=== PATIENT | male | born 1995 | race Caucasian/White ===

== ENCOUNTER 2017-11-29 15:52 | Emergency (ER) | payer OTHER, SELFPAY ==
[2017-11-29 15:52] VITALS: BP 165/96; PULSE 94; RESP 18; TEMP 37.2; O2SAT 98; BMI 38.0
--- NOTE | 2017-11-29 16:16 | EKG12_ITS ---
Test Reason : CHEST PAIN Blood Pressure : / mmHG Vent. Rate : 080 BPM Atrial Rate : 080 BPM P-R Int : 154 ms QRS Dur : 088 ms QT Int : 352 ms P-R-T Axes : 035 019 028 degrees QTc Int : 405 ms Normal sinus rhythm Normal ECG Confirmed by AKI REDD, JOSE ([id number]), clinical editor NIEVES BONNER ([id number]) on 12/01/2017 2:19:36 PM Referred By: VELVET/SELINA/ANANYA Confirmed By:JOSE PRABHAKAR MD
--- NOTE | 2017-11-29 16:16 | RAD_ITS ---
STUDY: X-RAY CHEST REASON FOR EXAM: Male, 22 years old. Chest pain. TECHNIQUE: Single frontal view of the chest. COMPARISON: June 28, 2012 FINDINGS: The lungs are clear and expanded. There is no demonstrated pleural abnormality. Normal size heart. Normal mediastinum and kamryn. Normal visualized pulmonary arteries. Normal visualized aortic arch and descending thoracic aorta. Normal visualized thoracic spine. Normal visualized ribs, clavicles, and shoulders. There is no demonstrated abnormality of the visualized soft tissue structures of the upper abdomen. RAD/Chest 1 View (Portable) IMPRESSION: No acute cardiopulmonary process. Electronically Signed: Barbara Pina MD at 16:44 EDT Tel , Service support ,
[2017-11-29 16:17] VITALS: O2SAT 96
--- NOTE | 2017-11-29 16:17 | ED.VISSUMM ---
- ER Visit Summary Date of Service: 11/29/17 Chief Complaint: Chest pain History of Present Illness: The patient is a 22 M with chest pain and breathing problems for the past week. Patient has had breathing problems before and has a history of asthma, but the chest pain is new. The pain is in his left chest and radiates into his left arm. Worse in the morning when he wakes up. He has no change with exertion. No other associated symptoms. No history of DVT or PE. No family history. No recent immobilization, surgery, or travel. No history of aortic disease. He does snore and is concerned he has obstructive sleep apnea. He has not been tested for sleep apnea. No known history of diabetes, hypertension, or high cholesterol. Non-smoker. Physical Examination: Afebrile. Blood pressure 165/96. Otherwise vitals unremarkable. Alert and oriented. No acute distress. Skin appears normal in color without diaphoresis or pallor. Heart regular rate and rhythm. Lungs clear in all resendiz. Abdomen soft and nontender. Calf soft and supple. Pulses strong and equal bilaterally. Test Results: EKG shows sinus rhythm at a rate of 80. No sign of acute ischemia or infarction pattern. Laboratory studies and chest x-ray are pending. Emergency Department Course and Treatment: Patient was placed on a monitor. He is PERC negative. Troponin is pending, but his heart score would be a maximum of 2. No concern for aortic disease. Will check basic labs and a chest x-ray as well. He declined pain medicine. Workup was unremarkable. Patient is overall low risk. He would like outpatient follow-up. Declined delta. Follow-up with primary care for recheck, further testing, and maintenance. Treatment Plan: As above Disposition: Discharged Impression: 1. Chest pain unclear etiology This note was generated with [employer] software. It may contain incorrect words, spelling, and punctuation that were not noted in review of the chart prior to signing ED Disposition - Plan for ED Patient: Chief Complaint: Chest Pain Referrals: Mohsen Miramontes MD [Primary Care Provider] -
--- NOTE | 2017-11-29 16:20 | ED.DCSUM_ITS ---
- ER Visit Summary Date of Service: 11/29/17 Chief Complaint: Chest pain History of Present Illness: The patient is a 22 M with chest pain and breathing problems for the past week. Patient has had breathing problems before and has a history of asthma, but the chest pain is new. The pain is in his left chest and radiates into his left arm. Worse in the morning when he wakes up. He has no change with exertion. No other associated symptoms. No history of DVT or PE. No family history. No recent immobilization, surgery, or travel. No history of aortic disease. He does snore and is concerned he has obstructive sleep apnea. He has not been tested for sleep apnea. No known history of diabetes, hypertension, or high cholesterol. Non-smoker. Physical Examination: Afebrile. Blood pressure 165/96. Otherwise vitals unremarkable. Alert and oriented. No acute distress. Skin appears normal in color without diaphoresis or pallor. Heart regular rate and rhythm. Lungs clear in all resendiz. Abdomen soft and nontender. Calf soft and supple. Pulses strong and equal bilaterally. Test Results: EKG shows sinus rhythm at a rate of 80. No sign of acute ischemia or infarction pattern. Laboratory studies and chest x-ray are pending. Emergency Department Course and Treatment: Patient was placed on a monitor. He is PERC negative. Troponin is pending, but his heart score would be a maximum of 2. No concern for aortic disease. Will check basic labs and a chest x-ray as well. He declined pain medicine. Workup was unremarkable. Patient is overall low risk. He would like outpatient follow-up. Declined delta. Follow-up with primary care for recheck , further testing, and maintenance. Treatment Plan: As above Disposition: Discharged Impression: 1. Chest pain unclear etiology This note was generated with [employer] formerly [employer] software. It may contain incorrect words, spelling, and punctuation that were not noted in review of the chart prior to signing ED Disposition - Plan for ED Patient: Chief Complaint: Chest Pain Referrals: Mohsen Miramontes MD [Primary Care Provider] -
[2017-11-29 16:48] LABS: Absolute Lymphocyte Count 2.69 X10^3/ul (0.83-4.51); Absolute Neutrophil Count 4.8 X10^3/uL (2.0-7.7); Basophil# 0.02 X10^3/uL; Basophil% 0.2 % (0-1); Eosinophil# 0.11 X10^3/uL; Eosinophils% 1.3 % (0-5); Hematocrit 42.6 % (40-54); Hemoglobin 14.7 g/dl (13.0-16.5); Lymphocyte # 2.69 X10^3/ul (4.0); Lymphocyte % 32.2 % (19-41); Mean Corp Hgb Conc 34.5 g/gl (32-36); Mean Corpuscular Hgb 30.3 pg (27.0-32.0); Mean Corpuscular Volume 87.8 fL (80-94); Mean Platelet Vol. 8.9 fl (6.2-12.0); Monocyte# 0.73 X10^3/uL; Monocyte% 8.7 % (0-10); Neutrophil # 4.79 X10^3/uL (2.7-7.7); Neutrophil % 57.4 % (47-70); Platelet Count 286 K/mm3 (150-450); RBC Distribution Width CV 13.2 % (11.6-14.6); Red Blood Count 4.85 M/mm3 (4.6-6.2); White Blood Count 8.4 K/mm3 (4.4-11.0)
[2017-11-29 16:50] LABS: POSITIVE COUNT NO; POSITIVE DIFFERENTIAL NO; POSITIVE MORPHOLOGY NO
[2017-11-29 16:52] VITALS: PULSE 92; RESP 17; O2SAT 97
[2017-11-29 17:00] VITALS: BP 121/60; PULSE 71; RESP 16; O2SAT 98
[2017-11-29 17:01] LABS: Anion Gap 8 (5-15); BUN 15 mg/dL (7-18); BUN/Creat Ratio 15.6 RATIO (10-20); Calcium,Total 8.8 mg/dL (8.5-10.1); Chloride 104 mmol/L (98-107); Creatinine, Serum 0.96 mg/dL (0.70-1.30); EST Glomerular Filtration Rate 104 mL/min (>60); Est Glom Filt Rate - Afr Amer 126 mL/min (>60); Glucose 99 mg/dL (74-106); Potassium 3.7 mmol/L (3.5-5.1); Sodium Level 139 mmol/L (136-145)
--- NOTE | 2017-11-29 17:43 | ED.DEP ---
ED Disposition - Plan for ED Patient: Chief Complaint: Chest Pain Instructions: ED Chest Pain Atypical Unkn Cause Referrals: Mohsen Miramontes MD [Primary Care Provider] -
[2017-11-29 18:00] VITALS: BP 123/69; PULSE 85; RESP 20; O2SAT 97
--- NOTE | 2017-11-29 18:17 | ED.RN ---
REVIEWED D/C INSTRUCTIONS, FOLLOW UP CARE, AND S/S THAT WOULD WARRANT A RETURN TO THE ED WITH PT. PT VERBALIZED AN UNDERSTANDING AND DENIES FURTHER QUESTIONS FOR THIS RN. PT SKIN P/W/D, RESP EVEN AND UNLABORED, PT A&O X 3, NO DISTRESS NOTED. PT AMBULATED OUT OF ED, GAIT STEADY.
== END 2017-11-29 18:19 | disposition home or self-care (01) ==
PROVIDERS: Emergency Provider Emergency Medicine; Family Provider Family Medicine; PCP Family Medicine
DX: R07.9 Chest pain, unspecified (principal); J45.909 Unspecified asthma, uncomplicated
CPT/HCPCS: 71045; 80048; 84484; 85025; 93005; 99284

== ENCOUNTER 2018-04-08 12:22 | Emergency (ER) | payer OTHER, SELFPAY ==
[2018-04-08 12:23] VITALS: BP 138/70; PULSE 93; RESP 16; TEMP 36.4; O2SAT 96; BMI 41.5
--- NOTE | 2018-04-08 12:41 | ED.RN ---
RT SIDED ABD PAIN.
--- NOTE | 2018-04-08 12:57 | CT_ITS ---
STUDY: CT ABDOMEN AND PELVIS WITH CONTRAST REASON FOR EXAM: Male, 22 years old. Right testicular pain. RADIATION DOSAGE (If Supplied By Facility): CTDIvol = ( 19.44 ) mGy, DLP = ( 1730.55 ) mGycm TECHNIQUE: Transaxial images were obtained from the dome of the diaphragm to the symphysis pubis without oral contrast. 100 ml of Isovue 300 contrast was administered. Sagittal and coronal images were reconstructed. Individualized dose optimization techniques were used for this CT. COMPARISON: Comparison is made with prior examination June 22, 2013. FINDINGS: The visualized lung bases are unremarkable. The visualized portions of the heart are within normal limits. There is decreased attenuation of the liver consistent with steatosis. Normal gallbladder and extrahepatic biliary system. Normal spleen. Normal pancreas. Normal bilateral adrenal glands. Normal right kidney. Normal left kidney. Normal visualized stomach. Normal small intestine. There are scattered colonic diverticula consistent with diverticulosis. The appendix is visualized and appears normal. Normal abdominal aorta. Normal inferior vena cava. There is borderline retroperitoneal lymphadenopathy with enlarged nodes no greater than 10mm in the short axis diameter. Normal urinary bladder. There is a small umbilical hernia containing fat. Small right inguinal hernia containing fat. Normal osseous structures. CT/Abdomen/Pelvis W IV Cont ONLY IMPRESSION: Fatty infiltration of the liver. Scattered sigmoid diverticula. Small right inguinal hernia containing fat. Electronically Signed: Yong Jeffers MD at 14:26 EST , Service support ,
--- NOTE | 2018-04-08 13:02 | ED.VISSUMM ---
- ER Visit Summary Date of Service: 04/08/18 Chief Complaint: Right-sided abdominal and groin pain History of Present Illness: The patient is a 22 M past medical history of asthma and a prior femur fracture. Patient states yesterday he awoke around 5:30 in the morning yesterday with right-sided abdominal pain. At times it does radiate to his right groin. No fever. Denies any nausea, vomiting or diarrhea. He has had some mild constipation but had a small bowel movement today. No melena. No history of kidney stones. No trauma. No hematuria or dysuria. No weight change. No prior abdominal surgery. Physical Examination: Vital signs are stable and afebrile. He is in no acute distress. H EENT exam unremarkable. Neck nontender no lymphadenopathy. Lungs clear to auscultation bilaterally. Heart regular rhythm no murmur. Abdomen soft. Nondistended. Normal bowel sounds. No hernias or masses. No signs of obstruction. He does have mild right upper and lower quadrant tenderness. External exam normal bilateral testicles. No torsion. No redness or warmth. No obvious hernia or masses. Circumcised. Extremities moves all 4. Neurovascular intact. Back nontender. Neurologically is awake alert with no focal motor deficits. Test Results: CBC normal. White count 8. Hemoglobin 14. Electrolytes normal normal creatinine gap. Liver enzymes unremarkable alk phos elevated at 126 ALT is 73. Lipase normal. Urinalysis unremarkable. CT abdomen pelvis with IV contrast only there is a small right inguinal hernia and also a small umbilical hernia. No obstruction. Clinically the patient is not incarcerated or strangulated. Emergency Department Course and Treatment: Treated with IV Toradol for pain. Treatment Plan: Repeat exam patient is doing well at 1453. Abdomen is benign. No signs of obstruction. I went over all tests with him including the CAT scan results. He is comfortable being discharged and following up as an outpatient. Disposition: Discharge Impression: Acute right-sided abdominal pain secondary to small right inguinal hernia Also incidental finding of a small umbilical hernia. This note was generated with [employer] dictation software. It may contain incorrect words, spelling, and punctuation that were not noted in review of the chart prior to signing ED Disposition - Plan for ED Patient: Chief Complaint: Male Pain/Injury Referrals: Mohsen Miramontes MD [Primary Care Provider] -
[2018-04-08 13:21] LABS: Absolute Lymphocyte Count 2.46 X10^3/ul (0.83-4.51); Absolute Neutrophil Count 5.5 X10^3/uL (2.0-7.7); Basophil# 0.02 X10^3/uL; Basophil% 0.2 % (0-1); Eosinophil# 0.08 X10^3/uL; Eosinophils% 0.9 % (0-5); Hemoglobin 14.9 g/dl (13.0-16.5); Lymphocyte # 2.46 X10^3/ul (4.0); Lymphocyte % 28.3 % (19-41); Mean Corp Hgb Conc 33.1 g/gl (32-36); Mean Corpuscular Hgb 29.4 pg (27.0-32.0); Mean Corpuscular Volume 88.8 fL (80-94); Mean Platelet Vol. 8.8 fl (6.2-12.0); Monocyte# 0.64 X10^3/uL; Monocyte% 7.4 % (0-10); Neutrophil # 5.47 X10^3/uL (2.7-7.7); Platelet Count 276 K/mm3 (150-450); RBC Distribution Width CV 13.2 % (11.6-14.6); RBC Distribution Width SD 42.6 fl (35.1-43.9); Red Blood Count 5.07 M/mm3 (4.6-6.2); White Blood Count 8.7 K/mm3 (4.4-11.0)
[2018-04-08 13:22] LABS: POSITIVE COUNT NO; POSITIVE DIFFERENTIAL NO; POSITIVE MORPHOLOGY NO
[2018-04-08] MEDS: 0.9% Normal Saline 1,000 ML 100 ML IV (13:23)
[2018-04-08] MEDS: Ketorolac 30 MG/ML Syringe IV (13:24)
[2018-04-08 13:25] LABS: Bacteria 0 SEEN /hpf (None Seen); Mucous, Urine 0 SEEN /hpf (<or=2+); Red Blood Cells-Urine 0 SEEN /hpf (0-5); White Blood Cells 0 SEEN /hpf (0-5)
[2018-04-08 13:26] LABS: Color, Urine Yellow (Yellow); Glucose, Dipstick Normal (Normal); Ketone-Dipstick Negative (Negative); Leukocyte Esterase-Dipstick Negative /ul (Negative); Nitrite-Dipstick Negative (Negative); Occult Blood-Urine Negative /ul (Negative); Protein-Dipstick Negative (Negative); Urine Bilirubin Dipstick Negative (Negative); Urine Clarity Sl. Cloudy (Clear); Urine Urobilinogen Normal (Normal)
[2018-04-08 13:32] LABS: Squamous Epithelial Cells - UA 0-5 SEEN /hpf (0-5)
[2018-04-08 13:38] LABS: AST(SGOT) 29 U/L (15-37); Alanine Aminotransfer ALT/SGPT 73 U/L (16-61); Albumin, Serum 3.8 g/dL (3.2-5.0); Alkaline Phosphatase 126 U/L (45-117); Anion Gap 10 (5-15); BUN 15 mg/dL (7-18); BUN/Creat Ratio 16.6 RATIO (10-20); Bilirubin, Direct 0.11 mg/dL (0.00-0.30); Chloride 105 mmol/L (98-107); EST Glomerular Filtration Rate 112 mL/min (>60); Est Glom Filt Rate - Afr Amer 135 mL/min (>60); Estimated Creatinine Clearance 142.51 ml/min; Globulin 4.4 g/dL (2.2-4.2); Glucose 84 mg/dL (74-106); Lipase 100 U/L (73-393); Potassium 3.9 mmol/L (3.5-5.1); Protein, Total 8.2 g/dL (6.4-8.2); Sodium Level 141 mmol/L (136-145)
[2018-04-08 14:23] VITALS: BP 158/96; PULSE 64; RESP 18; O2SAT 99
--- NOTE | 2018-04-08 15:03 | DCINST.ED_ITS ---
ED Disposition - Plan for ED Patient: Disposition: Home or Assisted Living Chief Complaint: Male Pain/Injury Instructions: ED Hernia Inguinal Referrals: Heidy Jimenez MD [STAFF PHYSICIAN] - 1-2 Weeks Additional Instructions: Tylenol and/or Motrin for pain. Call and follow-up with Dr. Heidy Jimenez or Dr. Padilla Shah of the [facility] for evaluation and possible repair of your right groin hernia and they also saw a small bellybutton hernia on the CAT scan.
[2018-04-08 15:14] VITALS: BP 121/74; PULSE 71; RESP 16; O2SAT 98
== END 2018-04-08 15:15 | disposition home or self-care (01) ==
PROVIDERS: Emergency Provider Emergency Medicine; Family Provider Family Medicine; PCP Family Medicine
DX: K40.90 Unilateral inguinal hernia, without obstruction or gangrene, not specified as recurrent (principal); K42.9 Umbilical hernia without obstruction or gangrene; K59.00 Constipation, unspecified; J45.909 Unspecified asthma, uncomplicated
CPT/HCPCS: 74177; 80048; 80076; 81001; 83690; 85025; 96374; 99283; Q9967; A4216

== ENCOUNTER 2019-04-11 05:35 | Emergency (ER) | payer OTHER, SELFPAY ==
[2018-12-12 10:04] VITALS: BMI 40.6
[2019-04-11 05:36] VITALS: BP 160/92; PULSE 85; RESP 18; TEMP 36.6; O2SAT 97; BMI 40.6
--- NOTE | 2019-04-11 05:42 | RAD_ITS ---
STUDY: X-RAY - LEFT HAND REASON FOR EXAM: Male, 23 years old. SMASHED LT HAND AT WORK -- MARKINGS ON SKIN POSTERIOR LT HAND AREA OF DISTAL 2ND-3RD METATARSALS TECHNIQUE: 4 view(s) of the hand. COMPARISON: None. FINDINGS: Normal radiocarpal articulation. Normal distal radioulnar joint. Normal visualized carpal bones. Normal carpal articulations Normal carpometacarpal articulation of the thumb. Normal second through fifth carpometacarpal joints. Normal metacarpi. Normal metacarpophalangeal joint of the thumb. Normal interphalangeal joint of the thumb. Normal proximal and distal phalanges of the thumb. Normal metacarpophalangeal joints of the second through fifth fingers. Normal proximal and distal interphalangeal joints of the second through fifth fingers. Normal phalanges of the second through fifth fingers. Mild dorsal metacarpal soft tissue prominence. RAD/Hand Min 3 Views IMPRESSION: There is no acute displaced fracture or dislocation. There is soft tissue swelling. Electronically Signed: Sylvia Brooks MD at 6:21 EST , Service support ,
--- NOTE | 2019-04-11 05:43 | ED.VIS.GEN ---
History of Present Illness Chief Complaint: Upper Extremity Injury Detail of Chief Complaint: Crush injury left hand Informant: Patient Onset: Today Current Severity: Mild Maximum Severity: Moderate Narrative: Patient presents after getting his hand caught between 2 pieces of equipment at work. He was wearing gloves at the time. He states he was able to free his hand rather quickly. He had a purple area in the palm of his hand and some abrasions over the back of his hand. He states he initially was not able to make a full fist but after using an ice pack it does seem to be improving. He is right-hand dominant. He denies paresthesias. - Past Medical History (1) Asthma Status: Chronic Past Medical History - Allergies and Home Meds Allergies/Adverse Reactions: Allergies montelukast sodium [From Singulair] Allergy (Verified 04/11/19 05:39) Shortness of breath Primary Care Physician: Mohsen Miramontes MD [Primary Care Provider] - Prior records reviewed: Yes Lives: Spouse/ Significant Other Smoking Status: Never smoker Review of Systems General: Denies: Chills, Fever Eyes: Denies: Visual changes - bilaterally ENT: Denies: Bilateral ear pain Cardiovascular: Denies: Chest pain Respiratory: Denies: Dyspnea Gastrointestinal: Denies: Abdominal pain Musculoskeletal: Reports: Arthralgias, Extremity Pain Skin: Reports: Abrasions Neurological: Denies: Weakness, Parasthesia Hematologic: Denies: Easy bruising Allergy: Denies: Uticaria Physical Exam Vital Signs/Narrative: Vital Signs Temp Pulse Resp BP Pulse Ox 04/11/19 05:36 97.9 F 85 18 160/92 H 97 Inital Vital Signs reviewed: Yes General: Well nourished, Well developed Head: Normocephalic ENT: Moist mucous membranes Neck: Supple Cardiovascular: Regular rate, Regular rhythm Respiratory: No distress, CTA bilaterally Abdomen: Soft, Nontender Extremities: - - Mild erythema over both the palm and back of the left hand. He is able to make a tight fist. There is no focal bony tenderness. No significant edema is noted. Neurological: Alert, Oriented x3 Psychological: Normal affect Diagnostic/Tx/Re-eval Left hand x-ray read by myself reveals no evidence of acute bony injury. - Medical Decision Making Patient is given ibuprofen for pain. He clinically has no sign of compartment syndrome. He is able to make a tight fist. He has good cap refill distally. Gauze pad is applied to both the palm the back of hand and then wrapped with Eric wrap. He is given work restrictions for today. He will follow-up with [facility] ED Disposition - Plan for ED Patient: Disposition: Home or Assisted Living Diagnosis: Crush injury of hand Instructions: CRUSH INJURY, Hand/Finger [facility]errals: [facility] PHYSIC[facility]ANS] - As soon as possible
[2019-04-11] MEDS: Ibuprofen 600 MG Tablet PO (05:51)
[2019-04-11 06:05] VITALS: BP 135/76; PULSE 85; RESP 17; O2SAT 99
== END 2019-04-11 06:13 | disposition home or self-care (01) ==
PROVIDERS: Emergency Provider Emergency Medicine; PCP Family Medicine
DX: S67.22XA Crushing injury of left hand, initial encounter (principal); W31.9XXA Contact with unspecified machinery, initial encounter; Y93.9 Activity, unspecified; Y92.9 Unspecified place or not applicable; Y99.0 Civilian activity done for income or pay
CPT/HCPCS: 73130; 99283

== ENCOUNTER 2019-10-12 08:21 | Emergency (ER) | payer OTHER, SELFPAY ==
[2019-10-12 08:24] VITALS: BP 185/87; PULSE 72; RESP 17; TEMP 37.3; O2SAT 99; BMI 48.2
[2019-10-12 08:31] VITALS: PULSE 83; RESP 20; O2SAT 97
--- NOTE | 2019-10-12 08:35 | EKG12_ITS ---
Test Reason : CP Blood Pressure : / mmHG Vent. Rate : 075 BPM Atrial Rate : 075 BPM P-R Int : 154 ms QRS Dur : 090 ms QT Int : 380 ms P-R-T Axes : 029 019 036 degrees QTc Int : 424 ms Normal sinus rhythm Normal ECG Confirmed by MARINA REDD, NIRAJ ([id number]), scientific publications editor LOUANN CISNEROS ([id number]) on 10/17/2019 8:51:49 AM Referred By: ROSY Confirmed By:NIRAJ GRAY MD
--- NOTE | 2019-10-12 08:36 | ED.DCSUM_ITS ---
History of Present Illness Chief Complaint: Headache Informant: Patient Narrative: Patient is a 24-year-old male with a past medical history of asthma who presents to the emergency department for an episode of unresponsiveness. Patient states he felt like he had a sudden onset frontal headache that is a 7 out of 10. Is currently down to 2 out of 10. He remembers the entire event but does not remember talking to people. Does not seem like the patient never lost complete consciousness. He had some left-sided sharp discomfort over his chest wall. He does have some minor residual 2 out of 10 pain now. Describes it as somebody was poking him in the chest. He has never had this happen before. He has very mild shortness of breath but relates it to wearing a mask. He denies any recent illnesses including any cough, cold, congestion. No fevers or chills. He denies any nausea/vomiting or abdominal pain. No change in bowel habits. No urinary symptoms. He has had leg swelling bilaterally over the past month. He tried to get into his PCP was not able to get in. He denies smoking, drinking or drug use. Denies any vision changes at this time. Denies any issues with speech. No weakness or loss of sensation in extremities. Past Medical History - Allergies and Home Meds Allergies/Adverse Reactions: Allergies montelukast sodium [From Singulair] Allergy (Verified 10/12/19 08:24) Shortness of breath Primary Care Physician: Mohsen Miramontes MD [Primary Care Provider] - 2 Days Prior records reviewed: Yes Past Medical History: - - Asthma Smoking Status: Never smoker Review of Systems All systems negative except as indicated General: Denies: Chills, Fever, Sweats Eyes: Denies: Visual changes - bilaterally, Diplopia ENT: Denies: Rhinorrhea, Sore throat Cardiovascular: Reports: Chest pain. Denies: Palpitations Respiratory: Reports: Dyspnea. Denies: Cough, Dyspnea on exertion Gastrointestinal: Denies: Abdominal pain, Nausea, Vomiting, Diarrhea, Melena, Hematochezia Genitourinary: Denies: Dysuria, Hematuria, Frequency Musculoskeletal: Denies: Back pain, Extremity Pain Skin: Denies: Rash, Wounds Neurological: Reports: Headache. Denies: Weakness, Numbness Physical Exam Vital Signs/Narrative: Vital Signs Temp Pulse Resp BP Pulse Ox 10/12/19 08:31 83 20 H 97 10/12/19 08:24 99.1 F 72 17 185/87 H 99 Inital Vital Signs reviewed: Yes General: Well nourished, Well developed, No Acute Distress Head: Normocephalic, Atraumatic Eyes: Perrl, EOMI ENT: Moist mucous membranes, No rhinorrhea Neck: Supple, Nontender Cardiovascular: Regular rate, Regular rhythm, No murmurs Respiratory: No distress, CTA bilaterally, Chest nontender Abdomen: Soft, Nontender, Nondistended, Normal bowel sounds Back: Nontender, Normal Inspection Extremities: Nontender, No edema, Edema - Bilateral lower extremity swelling, 1+ pitting. Skin: Normal color, No rash Neurological: Alert, Oriented x3, Cranial nerves II-XII grossly intact, Normal Strength, Normal Sensation Psychological: Normal affect, Normal Mood Diagnostic/Tx/Re-eval - Medical Decision Making Patient presents to the emergency department for an episode of nonresponsiveness but never lost consciousness. He did have chest pain as well as a headache but both are starting to resolve at this point. Upon arrival to the emergency department patient is starting to feel better but still feels like he is in a fog. His vital signs showed him to be hypertensive but otherwise normal. Physical exam he does have bilateral lower extremity swelling which he states is relatively new. Will check basic lab work along with EKG and chest x-ray. Lab work did not reveal any significant acute abnormality. Troponin within normal limits. D-dimer within normal limits. Chest x-ray did not show any marisela dence of consolidation. ET scan of the head did not show any acute intracranial abnormality. Patient is resting comfortably and fell asleep. Upon waking he is feeling better at this time. Patient states he works in a very hot environment and might of overheated. He is requesting a work excuse for the rest of the day and will be provided one. At this time will discharge home in stable condition. He is to follow-up with his PCP about his bilateral leg swelling. No concern for DVT/PE given the fact he has not been hypoxic, tachycardic and is bilateral. Warning signs and symptoms for which to return to the emerge department reviewed. He understands and is agreeable with this plan. ED Disposition - Plan for ED Patient: Disposition: Home or Assisted Living Diagnosis: Chest pain, Headache, Episode of altered consciousness Instructions: ED Chest Pain Atypical Unkn Cause, ED Headache Unspecified Referrals: Mohsen Miramontes MD [Primary Care Provider] - 2 Days
[2019-10-12 08:58] LABS: Absolute Lymphocyte Count 2.22 X10^3/uL (0.83-4.51); Absolute Neutrophil Count 4.4 X10^3/uL (2.0-7.7); Basophil# 0.02 X10^3/uL; Basophil% 0.3 % (0-1); Eosinophil# 0.13 X10^3/uL; Eosinophils% 1.7 % (0-5); Hematocrit 43.2 % (40-54); Hemoglobin 13.9 g/dL (13.0-16.5); Lymphocyte # 2.22 X10^3/ul (4.0); Lymphocyte % 29.7 % (19-41); Mean Corp Hgb Conc 32.2 g/dL (32-36); Mean Corpuscular Hgb 28.3 pg (27.0-32.0); Mean Platelet Vol. 8.8 fl (6.2-12.0); Monocyte# 0.74 X10^3/uL; Monocyte% 9.9 % (0-10); NRBC Flagged by Analyzer 0 % (0-5); Neutrophil # 4.36 X10^3/uL (2.7-7.7); Neutrophil % 58.3 % (47-70); Platelet Count 273 K/mm3 (150-450); RBC Distribution Width CV 13.2 % (11.6-14.6); RBC Distribution Width SD 42.5 fl (35.1-43.9); Red Blood Count 4.91 M/mm3 (4.6-6.2); White Blood Count 7.5 K/mm3 (4.4-11.0)
--- NOTE | 2019-10-12 09:00 | RAD_ITS ---
STUDY: X-RAY CHEST REASON FOR EXAM: Male, 24 years old. AGUILLON, NAUSEA, CHEST PRESSURE TECHNIQUE: Single AP portable view of the chest. COMPARISON: Comparison is made with prior study of 11/29/2017. FINDINGS: EKG electrodes are seen. The lungs are clear and expanded. There is no demonstrated pleural abnormality. Normal size heart. Normal mediastinum and kamryn. Normal visualized pulmonary arteries. Normal visualized aortic arch and descending thoracic aorta. Normal visualized thoracic spine. Normal visualized ribs, clavicles, and shoulders. There is no demonstrated abnormality of the visualized soft tissue structures of the upper abdomen. RAD/Chest 1 View (Portable) IMPRESSION: Normal x-ray examination of the chest. Electronically Signed: Yong Jeffers, at 9:25 EDT , Service support ,
[2019-10-12 09:15] LABS: Anion Gap 3 (5-15); BUN 14 mg/dL (7-18); BUN/Creat Ratio 14.6 RATIO (10-20); Calcium,Total 8.6 mg/dL (8.5-10.1); Chloride 106 mmol/L (98-107); Creatinine, Serum 0.96 mg/dL (0.70-1.30); EST Glomerular Filtration Rate 103 mL/min (>60); Est Glom Filt Rate - Afr Amer 124 mL/min (>60); Estimated Creatinine Clearance 123.57 ml/min; Glucose 126 mg/dL (74-106); Magnesium 2.4 mg/dL (1.6-2.6); Potassium 4.2 mmol/L (3.5-5.1); Sodium Level 138 mmol/L (136-145)
[2019-10-12 09:18] LABS: BNP,B-Type NATRIURETIC PEPTIDE 13.6 pg/mL (0-100)
[2019-10-12 09:19] LABS: D-Dimer Quantitative (DVT/PE) <= 0.27 FEU/ug/m (0.27-0.49)
--- NOTE | 2019-10-12 09:23 | CT_ITS ---
STUDY: CT BRAIN WITHOUT CONTRAST REASON FOR EXAM: Male, 24 years old. HEADACHE, NAUSEA WHILE AT WORK, HX-ASTHMA RADIATION DOSAGE (If Supplied By Facility): CTDIvol = ( 44.99 ) mGy, DLP = ( 796.11 ) mGycm TECHNIQUE: Transaxial CT imaging of the brain was performed without administration of intravenous contrast material. Individualized dose optimization techniques were used for this CT. COMPARISON: No relevant priors. FINDINGS: Normal soft tissue structures. Normal calvarium. Normal size ventricles and extra-axial spaces for the patient''s age. Normal white matter tracts of the cerebral hemispheres. Normal basal ganglia and thalami. Normal brainstem. Normal cerebellum. There is no intracranial hemorrhage. There are no findings of an acute ischemic infarction. Minimal mucosal thickening at the bases of both maxillary sinuses. CT/Brain/Head without Contrast IMPRESSION: Normal unenhanced CT scan of the brain. Electronically Signed: Yong Jeffers, at 10:01 EDT , Service support ,
[2019-10-12 10:26] VITALS: BP 118/81; PULSE 73; RESP 16; O2SAT 99
== END 2019-10-12 10:27 | disposition home or self-care (01) ==
PROVIDERS: Emergency Provider Emergency Medicine; PCP Family Medicine
DX: R51 Headache (principal); R07.89 Other chest pain; R40.4 Transient alteration of awareness
CPT/HCPCS: 70450; 71045; 80048; 83735; 83880; 84484; 85025; 85379; 93005; 99285; A4216

== ENCOUNTER 2019-10-18 21:09 | Emergency (ER) | payer OTHER, SELFPAY ==
[2019-10-18 21:09] VITALS: BP 148/78; PULSE 110; RESP 16; TEMP 36.3; O2SAT 94; BMI 45.8
--- NOTE | 2019-10-18 21:39 | ED.DCSUM_ITS ---
History of Present Illness Chief Complaint: Rash Informant: Patient Onset: Weeks Context: Gradual Onset Current Severity: Moderate Maximum Severity: Moderate Narrative: Patient presents with rash secondary to poison [place]. Approximate 10 days ago he was walking through the [place] in flip-flops and a pair shorts. He developed a rash on his upper and lower extremities. Rash is continued to worsen over the past week. He now has blistered lesions on his legs that are opening and draining. He has tried calamine lotion and anti-itch medication at home without improvement. - Past Medical History (1) Asthma Status: Chronic Past Medical History - Allergies and Home Meds Allergies/Adverse Reactions: Allergies montelukast sodium [From Singulair] Allergy (Verified 10/12/19 08:24) Shortness of breath Primary Care Physician: Mohsen Miramontes MD [Primary Care Provider] - Prior records reviewed: Yes Lives: Spouse/ Significant Other Smoking Status: Never smoker Review of Systems General: Denies: Chills, Fever Eyes: Denies: Visual changes - bilaterally ENT: Denies: Bilateral ear pain Cardiovascular: Denies: Chest pain Respiratory: Denies: Dyspnea, Cough Gastrointestinal: Denies: Abdominal pain, Nausea, Vomiting, Diarrhea Musculoskeletal: Denies: Extremity Pain Skin: Reports: Rash Neurological: Denies: Headache Hematologic: Denies: Easy bruising, Easy bleeding Allergy: Denies: Uticaria Physical Exam Vital Signs/Narrative: Vital Signs Temp Pulse Resp BP Pulse Ox 10/18/19 21:09 97.3 F L 110 H 16 148/78 H 94 Inital Vital Signs reviewed: Yes General: Well nourished, Well developed Head: Normocephalic ENT: Moist mucous membranes Neck: Supple Cardiovascular: Regular rate, Regular rhythm Respiratory: No distress, CTA bilaterally Abdomen: Soft, Nontender Skin: - - Erythematous rash to the extremities and trunk. In the lower extremities he has blistered lesions, some of which have opened and drained. No sign of secondary bacterial infection at this time. Neurological: Alert, Oriented x3 Psychological: Normal affect Diagnostic/Tx/Re-eval - Medical Decision Making Patient be treated with prednisone, first dose given here. He was placed on a taper. He is instructed to use Benadryl at home to help control itch. ED Disposition - Plan for ED Patient: Disposition: Home or Assisted Living Diagnosis: Contact dermatitis Instructions: ED Dermatitis Poison [place] Prescriptions: Prednisone 10 mg PO DAILY #63 tablet Referrals: Mohsen Miramontes MD [Primary Care Provider] - 1 Week if not improving
[2019-10-18] MEDS: predniSONE 20 MG Tablet 60 MG PO (21:57)
== END 2019-10-18 22:05 | disposition home or self-care (01) ==
LOC: ED 21:50
PROVIDERS: Emergency Provider Emergency Medicine; PCP Family Medicine
DX: L23.7 Allergic contact dermatitis due to plants, except food (principal); J45.909 Unspecified asthma, uncomplicated
CPT/HCPCS: 99283

== ENCOUNTER 2021-08-04 07:54 | Emergency (ER) | payer OTHER, SELFPAY ==
[2021-08-04 07:55] VITALS: BP 158/87; PULSE 83; RESP 18; TEMP 36.6; O2SAT 99; BMI 41.3
--- NOTE | 2021-08-04 08:11 | RAD_ITS ---
STUDY: X-RAY CHEST REASON FOR EXAM: Male, 26 years old. Chest pain that started this morning, radiating to the neck and shoulder TECHNIQUE: AP COMPARISON: 10/12/2019 FINDINGS: EKG leads project over the chest. The lungs are clear and expanded. There is no demonstrated pleural abnormality. Normal size heart. Normal mediastinum and kamryn. Normal visualized pulmonary arteries. Normal visualized aortic arch and descending thoracic aorta. Normal visualized thoracic spine. Normal visualized ribs, clavicles, and shoulders. There is no demonstrated abnormality of the visualized soft tissue structures of the upper abdomen. RAD/Chest 1 View (Portable) IMPRESSION: Nonacute portable x-ray examination of the chest. Electronically Signed: Calvin Ricci MD ([place]) at 8:30 EDT ,
--- NOTE | 2021-08-04 08:11 | EKG12_ITS ---
Test Reason : CP Blood Pressure : / mmHG Vent. Rate : 087 BPM Atrial Rate : 087 BPM P-R Int : 158 ms QRS Dur : 094 ms QT Int : 340 ms P-R-T Axes : 029 020 051 degrees QTc Int : 409 ms Normal sinus rhythm with sinus arrhythmia Normal ECG Confirmed by MARINA REDD, NIRAJ ([id number]), restaurant expeditor LOUANN CISNEROS ([id number]) on 08/06/2021 1:19:32 PM Referred By: NICKI Confirmed By:NIRAJ GRAY MD
--- NOTE | 2021-08-04 08:12 | ED.VIS.CHEST ---
HPI History of Present Illness Chief Complaint: Chest Pain Informant: patient Narrative Narrative: Presents by private vehicle with spouse evaluation sudden onset of midsternal chest pressure with pain into his left shoulder and neck 3 hours ago while at work. He states light activities with pushing buttons. He states he got dyspneic nausea and was pale at work. Chest pain subsided down to to feel sharp pain in his neck. No recent cough. No past medical history states no daily medicines. Denies tobacco. However states father with an [place] in his 20s currently 53 years old. No PE risk factors. No medications taken prior to arrival. Prior Similar Symptoms: No PFSH PFSH Medical History (Updated 08/04/21 @ 11:[address] Nigel Carolina DO) Asthma Home Medications albuterol sulfate 2 puff INHALATION Q4H PRN PRN 10/18/19 [History Last Taken Unknown] Allergy/AdvReac Type Severity Reaction Status Date / Time montelukast sodium Allergy Shortness Verified 08/04/21 08:05 [From Singediir] of breath Family History Father Diabetes Sleep apnea Narcolepsy Bipolar disorder Social History Smoking Status: Never smoker alcohol intake: never ROS ROS ED Constitutional Constitutional ED: Denies chills, fever(s) or sweats Eyes Eyes: Denies change in vision ENT ENT ED: Denies dysphagia or sore throat Cardiovascular Cardiovascular: Reports chest pain; Denies leg edema, palpitations or racing heartbeat Respiratory/Chest Respiratory/Chest: Reports dyspnea; Denies cough or dyspnea on exertion Gastrointestinal Gastrointestinal: Reports nausea; Denies abdominal pain, diarrhea or vomiting Genitourinary Genitourinary ED: Denies dysuria, hematuria or urinary frequency Musculoskeletal Musculoskeletal: Denies back pain, extremity pain or neck pain Integumentary Denies rash or wounds Neurologic Neurologic: Denies headache(s), paresthesias or weakness EXAM Physical Exam Const Vital Signs: 08/04/21 07:55 08/04/21 08:00 08/04/21 08:22 Temperature 97.9 F Temperature Source Temporal Pulse Rate 83 89 Respiratory Rate 18 Respiratory Effort Normal Non-Labored Blood Pressure 158/87 H 153/88 H Blood Pressure Mean 110 Pulse Ox 99 Oxygen Delivery Method Room Air 08/04/21 09:19 08/04/21 11:30 Temperature Temperature Source Pulse Rate 72 71 Respiratory Rate 14 16 Respiratory Effort Blood Pressure 136/91 H 124/68 H Blood Pressure Mean 106 Pulse Ox 95 98 Oxygen Delivery Method Room Air Positive well nourished and well developed General Appearance ED: well developed and NAD HEENT Reports moist mucous membranes normocephalic and atraumatic Eyes PERRL, EOMs intact bilaterally and conjunctivae normal General Eye ED: Yes normal appearance of both eyes Neck no lymphadenopathy and supple General: Negative for tenderness Chest Wall Chest: Negative for tenderness Resp normal respiratory effort and normal air movement Effort and Inspection: symmetric chest movement; Negative for respiratory distress Cardio regular rate, regular rhythm and no murmurs Peripheral Pulses: pulses 2+ throughout GI normal to inspection, nondistended, normoactive bowel sounds and non-tender Palpation: Negative for guarding or rebound tenderness present Back/Spine no CVA tenderness and no thoracic nor lumbar tenderness Extremity normal to inspection General Extremety ED: Negative for edema or tenderness General Extremity: Negative for edema Neuro oriented x3 and no sensory deficits noted Sensorium / Orientation: awake and alert Skin no rashes or lesions noted and no wounds Heart Score History: Moderately Suspicious ECG: Normal Age: </= 45 years Risk Factors: 1 or 2 Risk Factors Troponin: </= Normal Limit Score: 2 MDM MDM MDM Narrative Medical decision making narrative: Patient presents chest pains than 3 hours. Currently symptoms down to a 2 with pressure. Will treat with aspirin nitroglycerin. EKG sinus rhythm. We will perform a cardiac work-up. Primary risk factor is family history in his father. PERC criteria negative. 0945: Patient symptom-free after 1 nitro he had a headache. Declined additional Tylenol. Initial cardiac work-up negative with negative troponin. 1 view chest x-ray reviewed by myself and read by radiology shows no acute changes. Awaiting for delta troponin at this time. Repeat troponin negative. Patient remained symptom-free. Heart score is a 2. Discussed with patient will need to follow-up with PCP for stress test as an outpatient especially with Father [place] in his 20s. I discussed strict return precautions. All questions were answered. Lab Data Labs: Laboratory Results - last 24 hr 08/04/21 08/04/21 08/04/21 08:00 08:00 10:43 WBC 10.0 RBC 5.62 Hgb 16.3 Hct 49.3 MCV 87.7 MCH 29.0 MCHC 33.1 RDW Std Deviation 41.9 RDW Coeff of Tiffany 13.0 Plt Count 320 MPV 8.8 Immature Gran % (Auto) 0.300 Neut % (Auto) 55.0 Lymph % (Auto) 34.4 [place] % (Auto) 8.2 Eos % (Auto) 1.6 Baso % (Auto) 0.5 Absolute Neuts (auto) 5.5 Absolute Lymphs (auto) 3.43 Nucleated RBC % 0 Sodium 139 Potassium 3.8 Chloride 105 Carbon Dioxide 29.0 Anion Gap 5 BUN 16 Creatinine 1.05 Estim Creat Clear Calc 118.04 Est GFR (MDRD) Af Amer 110 Est GFR (MDRD) Non-Af 91 BUN/Creatinine Ratio 15.2 Glucose 103 Calcium 9.7 Troponin I High Sens < 3 L < 3 L Radiography Diagnostic Testing: Clinical Impression(s) from Imaging Studies Chest X-Ray 08/04/21 08:11 IMPRESSION: Nonacute portable x-ray examination of the chest. Electronically Signed: Calvin Ricci MD ([place]) at 8:30 EDT Reading Location ID and State: [address] [place] [address] , Service support , EKG Initial EKG: Attestation: I personally reviewed and interpreted this EKG as follows: Comments: Sinus rate of 87, no ST or T wave changes. Discharge Plan Triage Chief Complaint: Chest Pain ED Provider: Nigel Carolina Dx/Rx/DC Orders Clinical Impression: Acute chest pain, Family history of coronary artery disease Instructions: ED Chest Pain, Uncertain Cause Prescriptions: No Action albuterol sulfate 1 PUFF inhaler 2 puff inhalation Q4H PRN PRN (Reason: Shortness Of Breath) RF: 0 Primary Care Provider: Mohsen Miramontes Referrals: Mohsen Miramontes MD [Primary Care Provider] - 2 Days Activity Restrictions/Additional Instructions: Cardiac work-up negative today. You need to follow-up with your PCP for stress test as an outpatient. Return if any worsening symptoms. Disposition Disposition: Home, Self Care Discharge Date/Time: 08/04/21 11:31
[2021-08-04 08:21] LABS: Absolute Lymphocyte Count 3.43 X10^3/uL (0.83-4.51); Absolute Neutrophil Count 5.5 X10^3/uL (2.0-7.7); Basophil# 0.05 X10^3/uL; Basophil% 0.5 % (0-1); Eosinophil# 0.16 X10^3/uL; Eosinophils% 1.6 % (0-5); Hematocrit 49.3 % (40-54); Hemoglobin 16.3 g/dL (13.0-16.5); Lymphocyte # 3.43 X10^3/ul (0.83-4.51); Lymphocyte % 34.4 % (19-41); Mean Corp Hgb Conc 33.1 g/dL (32-36); Mean Corpuscular Volume 87.7 fL (80-94); Mean Platelet Vol. 8.8 fl (6.2-12.0); Monocyte# 0.82 X10^3/uL; Monocyte% 8.2 % (0-10); NRBC Flagged by Analyzer 0 % (0-5); Neutrophil # 5.49 X10^3/uL (2.7-7.7); Platelet Count 320 K/mm3 (150-450); RBC Distribution Width SD 41.9 fl (35.1-43.9); Red Blood Count 5.62 M/mm3 (4.6-6.2)
[2021-08-04] MEDS: Aspirin 81 MG TAB.CHEW 324 MG PO (08:21)
[2021-08-04 08:22] VITALS: BP 153/88; PULSE 89
[2021-08-04] MEDS: Nitroglycerin SL (ED/IMG/CATH) 0.4 MG TABLET SL (08:22)
[2021-08-04 08:46] LABS: Anion Gap 5 (5-15); BUN 16 mg/dL (7-18); BUN/Creat Ratio 15.2 RATIO (10-20); Calcium,Total 9.7 mg/dL (8.5-10.1); Chloride 105 mmol/L (98-107); Creatinine, Serum 1.05 mg/dL (0.70-1.30); EST Glomerular Filtration Rate 91 mL/min (>60); Est Glom Filt Rate - Afr Amer 110 mL/min (>60); Estimated Creatinine Clearance 118.04 ml/min; Glucose 103 mg/dL (74-106); Potassium 3.8 mmol/L (3.5-5.1); Sodium Level 139 mmol/L (136-145); Troponin-I HS (w/2H Reflex) < 3 pg/mL (3.0-78.0)
[2021-08-04 09:19] VITALS: BP 136/91; PULSE 72; RESP 14; O2SAT 95
[2021-08-04 10:18] LABS: Reflex Troponin-HS? (from REC) Y
[2021-08-04 11:04] LABS: Troponin-I HS < 3 pg/mL (3.0-78.0)
[2021-08-04 11:30] VITALS: BP 124/68; PULSE 71; RESP 16; O2SAT 98
== END 2021-08-04 11:31 | disposition home or self-care (01) ==
PROVIDERS: Emergency Provider Emergency Medicine; PCP Family Medicine; Visit Provider Emergency Medicine
DX: R07.9 Chest pain, unspecified (principal); Z82.49 Family history of ischemic heart disease and other diseases of the circulatory system
CPT/HCPCS: 36415; 71045; 80048; 84484; 85025; 93005; 99284

== ENCOUNTER 2022-04-15 06:49 | Emergency (ER) | payer OTHER, SELFPAY ==
[2022-04-15 06:50] VITALS: BP 183/80; PULSE 69; RESP 18; TEMP 36.9; O2SAT 98; BMI 44.6
--- NOTE | 2022-04-15 07:06 | EDS_ITS ---
HPI History of Present Illness Chief Complaint: Eye Problem Informant: patient Narrative Narrative: Patient states that he got his right eye scratched by his cat this morning. His alarm went off, he jumped and the cat was on him and ended up scratching him. He states it hurts a little bit when he opens his eyes but his vision is normal to him. Left eye is totally unaffected. Tetanus is up-to-date. He had a little bit of bleeding but that has stopped. No pain. No headache. No nausea or vomiting. [facility] Medical History (Updated 04/15/22 @ 07:[address] Rishabh Purvis MD) Asthma Home Medications albuterol sulfate 90 mcg/actuation aerosol inhaler 2 puff inhalation Q4H PRN PRN Shortness Of Breath 10/18/19 [History Last Taken Unknown] Allergy/AdvReac Type Severity Reaction Status Date / Time montelukast sodium Allergy Shortness Verified 08/04/21 08:05 [From Singulair] of breath Family History Father Diabetes Sleep apnea Narcolepsy Bipolar disorder Social History Smoking Status: Never smoker alcohol intake: never ROS ROS ED Constitutional Constitutional ED: Denies chills or fever(s) Eyes Eyes: Reports other Details: See history of present illness. ENT ENT ED: Denies rhinorrhea Gastrointestinal Gastrointestinal: Denies nausea or vomiting Integumentary Reports Abrasions Neurologic Neurologic: Denies headache(s) Hematologic/Lymphatic Hematologic/Lymphatic: Denies easy bleeding or easy bruising EXAM Physical Exam Const Vital Signs: 04/15/22 06:50 Temperature 98.4 F Temperature Source Oral Pulse Rate 69 Respiratory Rate 18 Blood Pressure 183/80 H Blood Pressure Mean 114 Pulse Ox 98 Oxygen Delivery Method Room Air Positive well nourished and well developed Constitutional Narrative: Patient sitting comfortably in bed. No acute distress. General Appearance ED: well developed HEENT HEENT Narrative: No facial injury or scratches noted. Eyes Eyes Narrative: Patient does have mild tearing. He has some difficulty opening the right eye for a long period he had a red line across the lower lid that we first thought was a small laceration. However, this was a small bit of blood that had sat there and was easily wiped away. I do not see any abrasions or lacerations on the outer surface of the lid. On the inner surface of the lower lid on the right eye there is a slight amount of redness but no tear of the skin. I can see subconjunctival hemorrhage and abrasion on the sclera toward the right side. Cornea looks clear. We will obtain slit-lamp for more detailed exam. Neck no lymphadenopathy and supple Resp normal respiratory effort Cardio regular rate Neuro oriented x3 MDM MDM MDM Narrative Medical decision making narrative: Visual acuity is 20/30 on the right 20/15 on the left. Slit-lamp exam shows subconjunctival hemorrhage contusion and abrasion of the sclera on the temporal aspect of the cornea. The edema does not cross onto the cornea. Eye was examined through full range of motion including under the lids. Fluorescein was then placed in the eye. There is no involvement of the cornea. He has negative Jessica sign. I placed a call to discuss the case with the mule developer, Dr. Redmond. I have not yet been able to reach him. I will have patient call him in the morning during normal business hours. We will initiate treatment at this time. I discussed reasons to return. Discharge Plan Triage Chief Complaint: Eye Problem ED Provider: Rishabh Purvis Dx/Rx/DC Orders Clinical Impression: Abrasion of sclera of right eye, Cat scratch Instructions: Subconjunctival Hemorrhage, ED Corneal Abrasion Prescriptions: No Action albuterol sulfate 1 PUFF inhaler 2 puff inhalation Q4H PRN PRN (Reason: Shortness Of Breath) Primary Care Provider: Mohsen Miramontes Referrals: Bishnu Redmond MD [Med Staff - Active Staff] - As soon as possible (Call this morning for appointment to be seen/rechecked) Mohsen Miramontes MD [Primary Care Provider] - Disposition Disposition: Home, Self Care
[2022-04-15] MEDS: Diphth,Pertuss(Acell),Tet Vac 0.5 ML Vial IM (08:06)
[2022-04-15] MEDS: Erythromycin Base 1 OPTH.TUBE 1 APPLIC RIGHT EYE (08:06)
[2022-04-15] MEDS: Tetracaine 0.5% Ophthalmic Bottle 1 DRP OPHTHALMIC (08:07)
[2022-04-15] MEDS: Fluorescein 1 MG STRIP 1 STRIP OPHTHALMIC (08:07)
== END 2022-04-15 08:30 | disposition home or self-care (01) ==
PROVIDERS: Emergency Provider Emergency Medicine; PCP Family Medicine; Visit Provider Emergency Medicine
DX: S05.01XA Injury of conjunctiva and corneal abrasion without foreign body, right eye, initial encounter (principal); W55.03XA Scratched by cat, initial encounter
CPT/HCPCS: 99282